=== PATIENT | female | born 1980 | race Caucasian/White ===

== ENCOUNTER 2020-02-17 10:57 | Outpatient (CLI) | payer MEDICAID ==
[2020-02-17 15:57] LABS: BASOPHILS # (AUTO) 0.1 10^3/uL (0.0-0.1); BASOPHILS % (AUTO) 0.8 %; EOSINOPHILS # (AUTO) 0.1 10^3/uL (0.0-0.7); EOSINOPHILS % (AUTO) 1.5 %; HGB - HEMOGLOBIN 11.5 g/dL (12.0-16.0); LYMPHOCYTES % (AUTO) 23.3 %; MEAN CORPUSCULAR HEMOGLOBIN 24.9 pg (27.0-31.0); MEAN CORPUSCULAR HGB CONC 30.2 g/dL (32.0-36.0); MEAN CORPUSCULAR VOLUME 82.6 fL (81.0-99.0); MEAN PLATELET VOLUME 11.4 fL (7.9-10.8); MONOCYTES # (AUTO) 0.5 10^3/uL (0.0-1.0); NEUTROPHILS # (AUTO) 5.7 10^3/uL (1.5-6.6); NEUTROPHILS % (AUTO) 68.2 %; PLT - PLATELET COUNT 403 10^3/uL (130-450); RED BLOOD COUNT 4.61 10^6/uL (4.20-5.40); RED CELL DISTRIBUTION WIDTH 16.4 % (12.0-15.0); WHITE BLOOD COUNT 8.4 x10^3/uL (4.8-10.8)
[2020-02-17 16:18] LABS: ALBUMIN 4.1 g/dL (3.2-5.5); ALBUMIN/GLOBULIN RATIO 1.1 (1.0-2.2); ALKALINE PHOSPHATASE 72 IU/L (42-121); ALT ALANINE AMINOTRANSFERASE 48 IU/L (10-60); AST ASPARTATE AMINOTRANSFERASE 34 IU/L (10-42); BILIRUBIN,TOTAL 0.5 mg/dL (0.2-1.0); BUN - BLOOD UREA NITROGEN 13 mg/dL (6-20); CALCIUM 9.3 mg/dL (8.5-10.3); CARBON DIOXIDE - CO2 24 mmol/L (21-32); CHLORIDE 101 mmol/L (101-111); CHOL/HDL RATIO 3.3 (<4.4); CHOLESTEROL 159 mg/dL; CREATININE 0.5 mg/dL (0.4-1.0); GLUCOSE 98 mg/dL (70-100); HDL CHOLESTEROL 48 mg/dL; LDL CHOLESTEROL,CALCULATED 94 mg/dL; SODIUM 135 mmol/L (135-145); TOTAL PROTEIN 7.9 g/dL (6.7-8.2); VLDL CHOLESTEROL 17 mg/dL
== END 2020-02-17 10:58 | disposition home or self-care (01) ==
LOC: LAB.S 10:57
PROVIDERS: ATTEND Registered Nurse
DX: E03.9 Hypothyroidism, unspecified (principal); E04.1 Nontoxic single thyroid nodule; I10 Essential (primary) hypertension; F41.8 Other specified anxiety disorders; M79.10 Myalgia, unspecified site
CPT/HCPCS: 36415; 80050; 80061; 83721

== ENCOUNTER 2020-07-05 18:34 | Outpatient (CLI) | payer MEDICAID | END 2020-07-05 18:35 | disposition home or self-care (01) | LOC: COV 18:34 | PROVIDERS: ATTEND Family Medicine | DX: R05 Cough (principal); R06.02 Shortness of breath; M79.10 Myalgia, unspecified site; R11.0 Nausea; Z20.822 Contact with and (suspected) exposure to COVID-19 ==

== ENCOUNTER 2020-08-07 17:06 | Outpatient (CLI) | payer MEDICAID | END 2020-08-07 17:07 | disposition home or self-care (01) | LOC: COV 17:06 | PROVIDERS: ATTEND Family Medicine | DX: Z20.822 Contact with and (suspected) exposure to COVID-19 (principal) ==

== ENCOUNTER 2021-02-26 21:06 | Outpatient (CLI) | payer MEDICAID | END 2021-02-26 21:07 | disposition EMS.NT | LOC: EMS 21:06 | DX: S99.912A Unspecified injury of left ankle, initial encounter (principal); X50.1XXA Overexertion from prolonged static or awkward postures, initial encounter; Y93.01 Activity, walking, marching and hiking; Y92.007 Garden or yard of unspecified non-institutional (private) residence as the place of occurrence of the external cause ==

== ENCOUNTER 2021-02-27 11:54 | Emergency (ER) | payer MEDICAID ==
[2021-02-27 12:07] VITALS: BP 153/101
--- NOTE | 2021-02-27 12:34 | XRAY Report ---
PROCEDURE: Ankle 3 View LT INDICATIONS: trauma TECHNIQUE: 3 views of the ankle were acquired. COMPARISON: None FINDINGS: Bones: No fractures or dislocations. Ankle mortise is normally aligned. No suspicious bony lesions . Well-defined plantar and dorsal calcaneal enthesophytes are seen. Soft tissues: Ankle soft tissue swelling is seen particularly over lateral malleolus. No tibiotalar j oint effusion. Achilles tendon appears normal. IMPRESSION: No definite acute ankle fracture or dislocation. Ankle mortise is congruent. Ankle soft tissue swelling as above. Reviewed by: Tremaine Chávez MD on 02/27/2021 12:33 PM PDT Approved by: Tremaine Chávez MD on 02/27/2021 12:33 PM PDT Station ID: [id number]
--- NOTE | 2021-02-27 14:11 | ED Physician Documentation ---
PD HPI LOWER EXT INJURY - Stated complaint Stated Complaint: L FOOT PX - Chief complaint Chief Complaint: Trauma Ext - History obtained from History obtained from: Patient - History of Present Illness PD HPI LOW EXT INJURY LOCATION: Left, Ankle Type of injury: Twist Where injury occurred: Home Timing - onset: Yesterday Timing - details: Abrupt onset, Still present Improved by: Immobilization Worsened by: Moving, Palpating, Other (weight bearing very painful.) Associated symptoms: Swelling. No: Weakness, Numbness Similar symptoms before: Has not had sx before Review of Systems Skin: denies: Abrasion (s), Laceration (s) Musculoskeletal: denies: Neck pain, Back pain Neurologic: denies: Focal weakness, Numbness, Head injury PD PAST MEDICAL HISTORY - Past Medical History Cardiovascular: None Respiratory: None - Present Medications Home Medications: Ambulatory Orders Medication Instructions Recorded Confirmed Ibuprofen [Motrin] 1 tablet PO Q8H PRN #30 tablet 02/27/21 - Allergies Allergies/Adverse Reactions: Allergies Allergy/AdvReac Type Severity Reaction Status Date / Time epinephrine AdvReac Anxiety Verified 02/27/21 12:07 PD ED PE NORMAL - Vitals Vital signs reviewed: Yes - General General: Alert and oriented X 3, No acute distress, Well developed/nourished - Derm Derm: Normal color, Warm and dry - Extremities Extremities: Other (left ankle with diffuse swelling and effusion. Achilles intact. too piainful for good stress testing of ligaments. no gross instability. normal color and cap refill.) - Neuro Neuro: No motor deficit, No sensory deficit Results - Vitals Vitals: Vital Signs - 24 hr 02/27/21 12:05 Temperature 36.0 C L Heart Rate 84 Respiratory 16 Rate Blood Pressure 153/101 H O2 Saturation 97 Oxygen O2 Source Room air - Rads (name of study) left ankle Radiology: Prelim report reviewed (no fractures. mortis is congruent.), EMP read contemporaneously, See rad report Departure - Departure Disposition: 01 Home, Self Care Clinical Impression: Ankle sprain Qualifiers: Encounter type: initial encounter Involved ligament of ankle: unspecified ligament Laterality: left Qualified Code(s): S93.402A - Sprain of unspecified ligament of left ankle, initial encounter Condition: Stable Record reviewed to determine appropriate education?: Yes Instructions: ED Sprain Ankle W X Ray Follow-Up: Patricia Pagan ARNP [Primary Care Provider] - Demetrius Hummel MD [Provider Admit Priv/Credential] - Prescriptions: Ibuprofen [Motrin] 1 tablet PO Q8H PRN #30 tablet PRN Reason: PAIN &/OR FEVER Comments: No fracture seen on your x-ray. However your ankle pain and swelling are suggestive of some ligament injuries. We can presume some partial tears. Use the walking boot when up and around for the next 2 to 3 weeks until feeling fully healed and supported. Use the crutches initially for not nonweightbearing to partial weightbearing as needed for comfort and progress weightbearing as tolerated. Ice elevate and rest your ankle often the next few days to reduce swelling. Ibuprofen 3 times a day with food. To that add Tylenol if needed. Recheck if not improving well over the next week or so to the point of fairly comfortable weightbearing. Continue with the ankle brace however to ensure support while fully healing. Discharge Date/Time: 02/27/21 15:55
[2021-02-27] MEDS ORDERED: IBUPROFEN 800 MG TABLET PO STA (15:22)
[2021-02-27] MEDS ORDERED: ACETAMINOPHEN 325 MG TABLET PO STA (15:22)
== END 2021-02-27 15:55 | disposition home or self-care (01) ==
LOC: ED 11:54
DX: S93.402A Sprain of unspecified ligament of left ankle, initial encounter (principal); X50.1XXA Overexertion from prolonged static or awkward postures, initial encounter; W01.0XXA Fall on same level from slipping, tripping and stumbling without subsequent striking against object, initial encounter; Y92.007 Garden or yard of unspecified non-institutional (private) residence as the place of occurrence of the external cause
CPT/HCPCS: 73610; 99282; 99283; A9270

== ENCOUNTER 2021-07-08 09:31 | Outpatient (CLI) | payer MEDICAID ==
[2021-07-08 15:11] LABS: BASOPHILS # (AUTO) 0.1 10^3/uL (0.0-0.1); BASOPHILS % (AUTO) 1.4 %; EOSINOPHILS # (AUTO) 0.3 10^3/uL (0.0-0.7); EOSINOPHILS % (AUTO) 3.7 %; HCT - HEMATOCRIT 34.8 % (37.0-47.0); HGB - HEMOGLOBIN 10.3 g/dL (12.0-16.0); LYMPHOCYTES # (AUTO) 1.8 10^3/uL (1.5-3.5); LYMPHOCYTES % (AUTO) 25.7 %; MEAN CORPUSCULAR HEMOGLOBIN 23.1 pg (27.0-31.0); MEAN CORPUSCULAR HGB CONC 29.6 g/dL (32.0-36.0); MEAN PLATELET VOLUME 11.1 fL (7.9-10.8); MONOCYTES # (AUTO) 0.6 10^3/uL (0.0-1.0); MONOCYTES % (AUTO) 8.3 %; NEUTROPHILS # (AUTO) 4.3 10^3/uL (1.5-6.6); NEUTROPHILS % (AUTO) 60.6 %; PLT - PLATELET COUNT 394 10^3/uL (130-450); RED BLOOD COUNT 4.46 10^6/uL (4.20-5.40); RED CELL DISTRIBUTION WIDTH 16.6 % (12.0-15.0); WHITE BLOOD COUNT 7.1 x10^3/uL (4.8-10.8)
[2021-07-08 15:49] LABS: ALBUMIN 3.7 g/dL (3.2-5.5); ALKALINE PHOSPHATASE 63 IU/L (42-121); ALT ALANINE AMINOTRANSFERASE 24 IU/L (10-60); AST ASPARTATE AMINOTRANSFERASE 19 IU/L (10-42); BILIRUBIN,TOTAL 0.4 mg/dL (0.2-1.0); BUN - BLOOD UREA NITROGEN 17 mg/dL (6-20); CALCIUM 8.7 mg/dL (8.5-10.3); CARBON DIOXIDE - CO2 26 mmol/L (21-32); CHLORIDE 104 mmol/L (101-111); CHOL/HDL RATIO 2.8 (<4.4); CHOLESTEROL 159 mg/dL; CREATININE 0.6 mg/dL (0.4-1.0); GFR - MDRD 110 (>89); GLUCOSE 102 mg/dL (70-100); HDL CHOLESTEROL 56 mg/dL; LDL CHOLESTEROL,CALCULATED 84 mg/dL; LDL/HDL RATIO 1.5 (<4.4); POTASSIUM 3.9 mmol/L (3.5-5.0); SODIUM 135 mmol/L (135-145); TOTAL PROTEIN 7.3 g/dL (6.7-8.2); TRIGLYCERIDES 97 mg/dL; VLDL CHOLESTEROL 19 mg/dL
[2021-07-08 16:20] LABS: THYROID STIMULATING HORMONE 9.05 uIU/mL (0.34-5.60)
[2021-07-08 17:01] LABS: FREE T4 (FREE THYROXINE) 0.83 ng/dL (0.58-1.64)
== END 2021-07-08 09:32 | disposition home or self-care (01) ==
LOC: LAB.S 09:31
PROVIDERS: ATTEND Registered Nurse
DX: D64.9 Anemia, unspecified (principal); E03.9 Hypothyroidism, unspecified; I10 Essential (primary) hypertension; F41.8 Other specified anxiety disorders; F41.9 Anxiety disorder, unspecified; F32.A Depression, unspecified
CPT/HCPCS: 36415; 80050; 80061; 83721; 84439

== ENCOUNTER 2021-07-09 08:00 | Outpatient (CLI) | payer MEDICAID ==
[2021-07-09 22:44] LABS: BACTERIAL VAGINOSIS DNA NEGATIVE (NEGATIVE); CANDIDA GLABRATA DNA NEGATIVE (NEGATIVE); CANDIDA GROUP DNA POSITIVE (NEGATIVE); CANDIDA KRUSEI DNA NEGATIVE (NEGATIVE); TRICHOMONAS VAGINALIS DNA NEGATIVE (NEGATIVE)
[2021-07-09 23:24] LABS: CHLAMYDIA TRACHOMATIS DNA NEGATIVE (NEGATIVE); NEISSERIA GONORRHOEAE DNA NEGATIVE (NEGATIVE); TRICHOMONAS VAGINALIS DNA NEGATIVE (NEGATIVE)
== END 2021-07-09 23:59 | disposition home or self-care (01) ==
LOC: LAB.S 08:00
PROVIDERS: ATTEND Physician Assistant
DX: N76.0 Acute vaginitis (principal)
CPT/HCPCS: 87491; 87591; 87661; 87801

== ENCOUNTER 2021-07-24 08:59 | Outpatient (CLI) | payer MEDICAID ==
[2021-07-24 16:14] LABS: % IRON SATURATION 6 % (20-50); IRON 27 ug/dL (28-170); TOTAL IRON BINDING CAPACITY 456 ug/dL (250-450); TRANSFERRIN 326 mg/dL (192-382)
[2021-07-24 16:17] LABS: ABSOLUTE RETICS # AUTO 0.056 10^6/uL (0.020-0.110); BASOPHILS # (AUTO) 0.1 10^3/uL (0.0-0.1); BASOPHILS % (AUTO) 1.3 %; EOSINOPHILS # (AUTO) 0.2 10^3/uL (0.0-0.7); EOSINOPHILS % (AUTO) 2.8 %; HCT - HEMATOCRIT 34.5 % (37.0-47.0); HGB - HEMOGLOBIN 10.1 g/dL (12.0-16.0); LYMPHOCYTES # (AUTO) 1.4 10^3/uL (1.5-3.5); LYMPHOCYTES % (AUTO) 20.7 %; MEAN CORPUSCULAR HEMOGLOBIN 23.2 pg (27.0-31.0); MEAN CORPUSCULAR HGB CONC 29.3 g/dL (32.0-36.0); MEAN CORPUSCULAR VOLUME 79.3 fL (81.0-99.0); MEAN PLATELET VOLUME 10.5 fL (7.9-10.8); MONOCYTES # (AUTO) 0.5 10^3/uL (0.0-1.0); MONOCYTES % (AUTO) 7.3 %; NEUTROPHILS # (AUTO) 4.5 10^3/uL (1.5-6.6); NEUTROPHILS % (AUTO) 67.6 %; PLT - PLATELET COUNT 409 10^3/uL (130-450); RED BLOOD COUNT 4.35 10^6/uL (4.20-5.40); RED CELL DISTRIBUTION WIDTH 16.5 % (12.0-15.0); RETICULOCYTE COUNT % (AUTO) 1.28 % (0.5-2.3); WHITE BLOOD COUNT 6.7 x10^3/uL (4.8-10.8)
[2021-07-24 16:32] LABS: FERRITIN 4.1 ng/mL (11.0-306.8)
[2021-07-24 16:36] LABS: FOLATE 11.5 ng/mL (5.90 - >24.8)
== END 2021-07-24 09:00 | disposition home or self-care (01) ==
LOC: LAB.S 08:59
PROVIDERS: ATTEND Registered Nurse
DX: D64.9 Anemia, unspecified (principal)
CPT/HCPCS: 36415; 81599; 82607; 82728; 82746; 83020; 83540; 84466; 85014; 85018; 85025; 85041; 85045

== ENCOUNTER 2021-10-02 22:05 | Outpatient (CLI) | payer MEDICAID ==
--- NOTE | 2021-10-03 08:37 | Ultrasound Report ---
PROCEDURE: Head or Neck Soft Tissue INDICATIONS: THYROID NODULE TECHNIQUE: Real-time scanning was performed of the thyroid gland, with image documentation. COMPARISON: 11/08/2018 FINDINGS: Right: Thyroid lobe measures 5.8 x 1.8 x 1.9 cm, and is heterogeneous in echotexture. Left: Thyroid lobe measures 5.9 x 1.8 x 2.1 cm, and is heterogeneous in echotexture. Isthmus: 7 mm thick. Nodule number: One Location: Upper to midpole right thyroid lobe Size: 1.4 x 1 x 0.9 cm, previously measures 1.3 x 0.9 x 0.8 cm. Composition: Solid Echogenicity: Hypoechoic Shape: wider than tall. Margins: Irregular Echogenic foci: None Total points: 6 ACR TI-RADS category: Moderately suspicious. Nodule number: Two Location: Mental of left thyroid lobe Size: 0.6 x 0.5 x 0.2 cm, previously measured 0.4 x 0.3 x 0.3 cm. Composition: Solid Echogenicity: Hyperechoic Shape: wider than tall. Margins: Smooth Echogenic foci: None Total points: 3 ACR TI-RADS category: Mildly suspicious. IMPRESSION: 1. Heterogeneous thyroid parenchymal echotexture. Bilateral thyroid nodules as described above, not s ignificantly changed in size and appearance from 2019 study. Consider continued sonographic follow-up . Following recommendations. ACR TI-RADS definitions and recommendations: TI-RADS 1 (benign): 0 points. FNA not needed. TI-RADS 2 (not suspicious): 2 points. FNA not needed. TI-RADS 3 (mildly suspicious): 3 points. "FNA if 2.5 cm or larger, follow up if 1.5 cm or larger (at 1, 3, and 5 years). TI-RADS 4 (moderately suspicious): 4-6 points. "FNA if 1.5 cm or larger, follow up if 1 cm or larger (at 1, 2, 3, and 5 years). TI-RADS 5 (highly suspicious): 7 points or more. "FNA if 1 cm or larger, follow up if 0.5 cm or larger (every year for 5 years). Reviewed by: Tremaine Chávez MD on 10/03/2021 8:36 AM PDT Approved by: Tremaine Chávez MD on 10/03/2021 8:36 AM PDT Station ID: [id number]
== END 2021-10-02 22:06 | disposition home or self-care (01) ==
LOC: DI 22:05
PROVIDERS: ATTEND Registered Nurse
DX: E04.2 Nontoxic multinodular goiter (principal)

== ENCOUNTER 2022-04-17 13:57 | Outpatient (CLI) | payer MEDICAID ==
[2022-04-17 20:50] LABS: T4 (THYROXINE) 10.27 ug/dL (6.09-12.23)
[2022-04-17 20:54] LABS: THYROID STIMULATING HORMONE 2.99 uIU/mL (0.34-5.60)
== END 2022-04-17 13:58 | disposition home or self-care (01) ==
LOC: LAB.S 13:57
PROVIDERS: ATTEND Registered Nurse
DX: E03.9 Hypothyroidism, unspecified (principal)
CPT/HCPCS: 36415; 84436; 84443; 84480

== ENCOUNTER 2022-06-10 16:23 | Outpatient (CLI) | payer MEDICAID ==
--- NOTE | 2022-06-10 20:19 | Ultrasound Report ---
PROCEDURE: Ext Limited Non Vascular INDICATIONS: BENIGN NEOPLASM LATERAL RIGHT THIGH TECHNIQUE: Real-time scanning was performed of the anterior thigh., with image documentation. COMPARISON: None. FINDINGS: Sonographic images demonstrate no focal mass or fluid collection. Minimal appearance of in creased vascularity is noted. Concern. IMPRESSION: Nonspecific slight increased vascularity at the area of concern without defined mass. Ov erall appearance is nonspecific and if concern persists, MRI is recommended. Reviewed by: Karen Harden MD on 06/10/2022 8:18 PM PST Approved by: Karen Harden MD on 06/10/2022 8:18 PM PST Station ID: [id number]
== END 2022-06-10 16:24 | disposition home or self-care (01) ==
LOC: DI 16:23
PROVIDERS: ATTEND Registered Nurse
DX: D36.7 Benign neoplasm of other specified sites (principal)

== ENCOUNTER 2022-06-24 08:00 | Outpatient (CLI) | payer MEDICAID, OTHER ==
[2022-06-24 12:40] LABS: BASOPHILS # (AUTO) 0.1 10^3/uL (0.0-0.1); BASOPHILS % (AUTO) 1.2 %; EOSINOPHILS # (AUTO) 0.2 10^3/uL (0.0-0.7); EOSINOPHILS % (AUTO) 2.3 %; HCT - HEMATOCRIT 35.4 % (37.0-47.0); HGB - HEMOGLOBIN 10.4 g/dL (12.0-16.0); LYMPHOCYTES # (AUTO) 1.5 10^3/uL (1.5-3.5); LYMPHOCYTES % (AUTO) 20.4 %; MEAN CORPUSCULAR HEMOGLOBIN 23.4 pg (27.0-31.0); MEAN CORPUSCULAR HGB CONC 29.4 g/dL (32.0-36.0); MEAN CORPUSCULAR VOLUME 79.6 fL (81.0-99.0); MEAN PLATELET VOLUME 11.5 fL (7.9-10.8); MONOCYTES # (AUTO) 0.6 10^3/uL (0.0-1.0); MONOCYTES % (AUTO) 7.3 %; NEUTROPHILS # (AUTO) 5.2 10^3/uL (1.5-6.6); NEUTROPHILS % (AUTO) 68.4 %; PLT - PLATELET COUNT 344 10^3/uL (130-450); RED BLOOD COUNT 4.45 10^6/uL (4.20-5.40); RED CELL DISTRIBUTION WIDTH 17.1 % (12.0-15.0); WHITE BLOOD COUNT 7.5 x10^3/uL (4.8-10.8)
[2022-06-24 12:58] LABS: ALBUMIN 3.7 g/dL (3.2-5.5); ALKALINE PHOSPHATASE 62 IU/L (42-121); ALT ALANINE AMINOTRANSFERASE 15 IU/L (10-60); AST ASPARTATE AMINOTRANSFERASE 15 IU/L (10-42); BILIRUBIN,TOTAL 0.5 mg/dL (0.2-1.0); BUN - BLOOD UREA NITROGEN 20 mg/dL (6-20); CALCIUM 9.1 mg/dL (8.5-10.3); CARBON DIOXIDE - CO2 27 mmol/L (21-32); CHLORIDE 104 mmol/L (101-111); CREATININE 0.5 mg/dL (0.4-1.0); GFR - MDRD 135 (>89); GLUCOSE 94 mg/dL (70-100); POTASSIUM 4.2 mmol/L (3.5-5.0); SODIUM 139 mmol/L (135-145); TOTAL PROTEIN 7.4 g/dL (6.7-8.2)
[2022-06-24 13:00] LABS: CRP - C-REACTIVE PROTEIN < 1.0 mg/dL (0-1.0)
== END 2022-06-24 23:59 | disposition home or self-care (01) ==
LOC: LAB.N 08:00
PROVIDERS: ATTEND Nurse Practitioner
DX: D17.9 Benign lipomatous neoplasm, unspecified (principal)
CPT/HCPCS: 36415; 80053; 85025; 85379; 86140

== ENCOUNTER 2022-07-07 09:22 | Emergency (ER) | payer OTHER, MEDICAID ==
[2022-07-07 09:59] LABS: BASOPHILS # (AUTO) 0.1 10^3/uL (0.0-0.1); BASOPHILS % (AUTO) 1.1 %; EOSINOPHILS # (AUTO) 0.1 10^3/uL (0.0-0.7); EOSINOPHILS % (AUTO) 1.5 %; HGB - HEMOGLOBIN 10.3 g/dL (12.0-16.0); LYMPHOCYTES # (AUTO) 1.9 10^3/uL (1.5-3.5); LYMPHOCYTES % (AUTO) 25.5 %; MEAN CORPUSCULAR HEMOGLOBIN 23.3 pg (27.0-31.0); MEAN CORPUSCULAR HGB CONC 29.4 g/dL (32.0-36.0); MEAN PLATELET VOLUME 10.5 fL (7.9-10.8); MONOCYTES # (AUTO) 0.5 10^3/uL (0.0-1.0); MONOCYTES % (AUTO) 6.7 %; NEUTROPHILS # (AUTO) 4.7 10^3/uL (1.5-6.6); NEUTROPHILS % (AUTO) 64.8 %; PLT - PLATELET COUNT 444 10^3/uL (130-450); RED BLOOD COUNT 4.43 10^6/uL (4.20-5.40); RED CELL DISTRIBUTION WIDTH 16.5 % (12.0-15.0); WHITE BLOOD COUNT 7.3 x10^3/uL (4.8-10.8)
--- OUTSIDE RECORDS SUMMARY | 2022-07-07 10:06 | EXTERNAL MEDICAL SUMMARY RPT | Continuity of Care Document ---
:1980 Author Organization [facility] Address [address] [place] [address] Phone Care Team Providers Name Role Phone Patricia Pagan Unavailable Unavailable Allergies No information. Encounters No information. Functional Status No information. Immunizations No information. Medications No information. Problems date description facility 2022-05-27 00:00 [facility] 2022-06-24 00:00 Patient left before evaluation by [facility] Procedures No information. Results/Labs test date author facility value unit interpret ation Result panel 1 (unknown) (no date) (unknown) (unknown) (no value) (units (un known) unknown) (unknown) (no date) (unknown) (unknown) 11:02 (units (unkn own) unknown) (unknown) (no date) (unknown) (unknown) 05/27/22 (units (unkn own) unknown) (unknown) (no date) (unknown) (unknown) [id number] (units (unkn own) unknown) (unknown) (no date) (unknown) (unknown) Age/Sex: 41 / (units (unknown) F unknown) (unknown) (no date) (unknown) (unknown) Blood Pressure (units (unknown) 152/82 H unknown) 05/27/22 11:02 (unknown) (no date) (unknown) (unknown) Blood Pressure (units (unknown) 152/82 H unknown) (unknown) (no date) (unknown) (unknown) Chief (units (unkn own) complaint: unknown) Extremity Problem,Nontrau matic (unknown) (no date) (unknown) (unknown) Course (units (unkn own) unknown) (unknown) (no date) (unknown) (unknown) : (units (unkn own) 1980 unknown) Acct:[id number] (unknown) (no date) (unknown) (unknown) Date of (units (unkn own) Service: unknown) 05/27/22 (unknown) (no date) (unknown) (unknown) Departure (units (unk nown) unknown) (unknown) (no date) (unknown) (unknown) Discharge Plan (units (unknown) unknown) (unknown) (no date) (unknown) (unknown) ER Physician: (units (unknown) Liz Alamo unknown) D.O. (unknown) (no date) (unknown) (unknown) Emergency (units (unk nown) Report unknown) (unknown) (no date) (unknown) (unknown) Exam (units (unkn own) unknown) (unknown) (no date) (unknown) (unknown) General (units (unkn own) unknown) (unknown) (no date) (unknown) (unknown) HPI - (units (unkn own) Extremity unknown) Problem (unknown) (no date) (unknown) (unknown) Initial Vital (units (unknown) Signs unknown) (unknown) (no date) (unknown) (unknown) Initial Vital (units (unknown) Signs: unknown) (unknown) (no date) (unknown) (unknown) [place] (units (unkn own) [place] [id number] unknown) [address] [place] [id number] (unknown) (no date) (unknown) (unknown) Patricia Pagan, (units (unknown) SOFTWARE PERFORMANCE ENGINEER-C [Primary unknown) Care Provider] (unknown) (no date) (unknown) (unknown) Mode of (units (unkn own) arrival: unknown) Ambulatory (unknown) (no date) (unknown) (unknown) Oxygen (units (unkn own) Delivery Method unknown) 05/27/22 11:02 (unknown) (no date) (unknown) (unknown) Oxygen (units (unkn own) Delivery Method unknown) Room Air (unknown) (no date) (unknown) (unknown) Patient (units (unkn own) History unknown) (unknown) (no date) (unknown) (unknown) Patient: (units (unkn own) Linsey Verduzco unknown) MR#: [id number] (unknown) (no date) (unknown) (unknown) Pulse Oximetry (units (unknown) 99 05/27/22 unknown) 11:02 (unknown) (no date) (unknown) (unknown) Pulse Oximetry (units (unknown) 99 unknown) (unknown) (no date) (unknown) (unknown) Pulse Rate 80 (units (unknown) 05/27/22 11:02 unknown) (unknown) (no date) (unknown) (unknown) Pulse Rate 80 (units (unknown) unknown) (unknown) (no date) (unknown) (unknown) Referrals: (units (un known) unknown) (unknown) (no date) (unknown) (unknown) Respiratory (units (u nknown) Rate 18 unknown) 05/27/22 11:02 (unknown) (no date) (unknown) (unknown) Respiratory (units (u nknown) Rate 18 unknown) (unknown) (no date) (unknown) (unknown) Signed By: (units (un known) unknown) (unknown) (no date) (unknown) (unknown) Smoking (units (unkn own) Status: Current unknown) every day smoker (unknown) (no date) (unknown) (unknown) Social History (units (unknown) unknown) (unknown) (no date) (unknown) (unknown) Source: (units (unkn own) patient unknown) (unknown) (no date) (unknown) (unknown) Stated (units (unkn own) complaint: mass unknown) on RT thigh t-14 (unknown) (no date) (unknown) (unknown) Substance Use (units (unknown) Type: does not unknown) use (unknown) (no date) (unknown) (unknown) Temperature (units (u nknown) 98.2 F 05/27/22 unknown) 11:02 (unknown) (no date) (unknown) (unknown) Temperature (units (u nknown) 98.2 F unknown) (unknown) (no date) (unknown) (unknown) Time Seen by (units ( unknown) Provider: unknown) 05/27/22 10:54 (unknown) (no date) (unknown) (unknown) Vital Signs - (units (unknown) 8 hr unknown) (unknown) (no date) (unknown) (unknown) Vital Signs (units (u nknown) unknown) (unknown) (no date) (unknown) (unknown) Vital signs: (units ( unknown) unknown) (unknown) (no date) (unknown) (unknown) alcohol intake (units (unknown) frequency: 0-2 unknown) drinks per day (unknown) (no date) (unknown) (unknown) tobacco type: (units (unknown) cigarettes unknown) Result panel 2 (unknown) (no (unknown) (unknown) (no value) (units (unk nown) date) unknown) (unknown) (no (unknown) (unknown) 11:02 (units (unkno wn) date) unknown) (unknown) (no (unknown) (unknown) 05/27/22 (units (unkno wn) date) unknown) (unknown) (no (unknown) (unknown) [id number] (units (unkno wn) date) unknown) (unknown) (no (unknown) (unknown) 8 point review of (units (unknown) date) systems is unknown) negative except for those stated above and HPI (unknown) (no (unknown) (unknown) Activity (units (unkno wn) date) Restrictions/Addit unknown) ional Instructions: (unknown) (no (unknown) (unknown) Age/Sex: 41 / F (units (unknown) date) unknown) (unknown) (no (unknown) (unknown) At this time that (units (unknown) date) you probably have unknown) a fatty mass. It is called a lipoma. This (unknown) (no (unknown) (unknown) Blood Pressure (units (unknown) date) 152/82 H 05/27/22 unknown) 11:02 (unknown) (no (unknown) (unknown) Blood Pressure (units (unknown) date) 152/82 H unknown) (unknown) (no (unknown) (unknown) CARDIOVASCULAR: (units (unknown) date) Denies chest pain, unknown) palpitations (unknown) (no (unknown) (unknown) CARDIOVASCULAR: (units (unknown) date) peripheral pulses unknown) in tact, cap refill <2 sec (unknown) (no (unknown) (unknown) Chief complaint: (units (unknown) date) Extremity unknown) Problem,Nontraumat ic (unknown) (no (unknown) (unknown) Clinical (units (unkno wn) date) Impression: unknown) (unknown) (no (unknown) (unknown) Continue all (units (u nknown) date) medications as unknown) previously prescribed (unknown) (no (unknown) (unknown) Course (units (unkno wn) date) unknown) (unknown) (no (unknown) (unknown) : 1980 (units (unknown) date) Acct:[id number] unknown) (unknown) (no (unknown) (unknown) Date of Service: (units (unknown) date) 05/27/22 unknown) (unknown) (no (unknown) (unknown) Departure (units (unkn own) date) unknown) (unknown) (no (unknown) (unknown) Discharge Plan (units (unknown) date) unknown) (unknown) (no (unknown) (unknown) ER Physician: (units ( unknown) date) Liz Alamo unknown) D.O. (unknown) (no (unknown) (unknown) EXTREMITIES: (units (u nknown) date) Normal range of unknown) motion, no clubbing or edema. Neurovascularly (unknown) (no (unknown) (unknown) Emergency Report (units (unknown) date) unknown) (unknown) (no (unknown) (unknown) Exam (units (unkno wn) date) unknown) (unknown) (no (unknown) (unknown) GASTROINTESTINAL: (units (unknown) date) Denies nausea, unknown) vomiting (unknown) (no (unknown) (unknown) GENERAL: Denies (units (unknown) date) chills,fever unknown) (unknown) (no (unknown) (unknown) GENERAL: (units (unkno wn) date) Well-appearing, unknown) well-nourished and in no acute distress. (unknown) (no (unknown) (unknown) General (units (unkno wn) date) unknown) (unknown) (no (unknown) (unknown) HEENT: Denies (units ( unknown) date) throat pain unknown) (unknown) (no (unknown) (unknown) HPI - Extremity (units (unknown) date) Problem unknown) (unknown) (no (unknown) (unknown) HPI Narrative: (units (unknown) date) unknown) (unknown) (no (unknown) (unknown) History of (units (unk nown) date) Present Illness unknown) (unknown) (no (unknown) (unknown) Initial Vital (units ( unknown) date) Signs unknown) (unknown) (no (unknown) (unknown) Initial Vital (units ( unknown) date) Signs: unknown) (unknown) (no (unknown) (unknown) Instructions: (units ( unknown) date) Lipoma, DI for unknown) Lipoma Removal (unknown) (no (unknown) (unknown) [facility] (units (unknown) date) [address] unknown) [place] [address] (unknown) (no (unknown) (unknown) Patricia Pagan, (units ( unknown) date) SOFTWARE PERFORMANCE ENGINEER-C [Primary unknown) Care Provider] (unknown) (no (unknown) (unknown) Lipoma (units (unkno wn) date) unknown) (unknown) (no (unknown) (unknown) MDM - Extremity (units (unknown) date) (Nontraumatic) unknown) (unknown) (no (unknown) (unknown) MDM Narrative (units ( unknown) date) unknown) (unknown) (no (unknown) (unknown) MUSCULOSKELETAL: (units (unknown) date) Denies extremity unknown) pain, injury (unknown) (no (unknown) (unknown) Medical decision (units (unknown) date) making narrative: unknown) (unknown) (no (unknown) (unknown) Mode of arrival: (units (unknown) date) Ambulatory unknown) (unknown) (no (unknown) (unknown) NEUROLOGIC: (units (un known) date) Denies weakness, unknown) dizziness, headache, numbness (unknown) (no (unknown) (unknown) NEUROLOGICAL: (units ( unknown) date) Cranial nerves II unknown) through XII grossly intact. Normal gait and (unknown) (no (unknown) (unknown) Narrative: (units (unk nown) date) unknown) (unknown) (no (unknown) (unknown) Oxygen Delivery (units (unknown) date) Method 05/27/22 unknown) 11:02 (unknown) (no (unknown) (unknown) Oxygen Delivery (units (unknown) date) Method Room Air unknown) (unknown) (no (unknown) (unknown) Patient (units (unkno wn) date) Disposition: Home unknown) (unknown) (no (unknown) (unknown) Patient History (units (unknown) date) unknown) (unknown) (no (unknown) (unknown) Patient is a (units (u nknown) date) 41-year-old female unknown) history of hypothyroid hyper tension presenting (unknown) (no (unknown) (unknown) Patient presents (units (unknown) date) with ongoing unknown) swelling in her right lateral thigh. It is non (unknown) (no (unknown) (unknown) Patient: (units (unkno wn) date) Linsey Verduzco unknown) MR#: [id number] (unknown) (no (unknown) (unknown) Please monitor (units (unknown) date) for any worsening unknown) symptoms such as redness swelling pain fever, (unknown) (no (unknown) (unknown) Please see your (units (unknown) date) primary care unknown) provider in the next 2-3 days at least call for an (unknown) (no (unknown) (unknown) Probable lipoma. (units (unknown) date) She is ambulatory unknown) without any difficulty. There is no sign of (unknown) (no (unknown) (unknown) Pulse Oximetry 99 (units (unknown) date) 05/27/22 11:02 unknown) (unknown) (no (unknown) (unknown) Pulse Oximetry 99 (units (unknown) date) unknown) (unknown) (no (unknown) (unknown) Pulse Rate 80 (units ( unknown) date) 05/27/22 11:02 unknown) (unknown) (no (unknown) (unknown) Pulse Rate 80 (units ( unknown) date) unknown) (unknown) (no (unknown) (unknown) RESPIRATORY: (units (u nknown) date) Denies dyspnea, unknown) cough, wheezing (unknown) (no (unknown) (unknown) RESPIRATORY: No (units (unknown) date) respiratory unknown) distress, speaks in full sentences without (unknown) (no (unknown) (unknown) Referrals: (units (unk nown) date) unknown) (unknown) (no (unknown) (unknown) Respiratory Rate (units (unknown) date) 18 05/27/22 11:02 unknown) (unknown) (no (unknown) (unknown) Respiratory Rate (units (unknown) date) 18 unknown) (unknown) (no (unknown) (unknown) Review of Systems (units (unknown) date) unknown) (unknown) (no (unknown) (unknown) SKIN: No rash, no (units (unknown) date) laceration, no unknown) pruritus (unknown) (no (unknown) (unknown) SKIN: Right (units (un known) date) lateral thigh unknown) there is swelling probable lipoma it is not (unknown) (no (unknown) (unknown) Signed By: (units (unk nown) date) unknown) (unknown) (no (unknown) (unknown) Smoking Status: (units (unknown) date) Current every day unknown) smoker (unknown) (no (unknown) (unknown) Social History (units (unknown) date) unknown) (unknown) (no (unknown) (unknown) Source: patient (units (unknown) date) unknown) (unknown) (no (unknown) (unknown) Stated complaint: (units (unknown) date) mass on RT thigh unknown) t-14 (unknown) (no (unknown) (unknown) Substance Use (units ( unknown) date) Type: does not use unknown) (unknown) (no (unknown) (unknown) Temperature 98.2 (units (unknown) date) F 05/27/22 11:02 unknown) (unknown) (no (unknown) (unknown) Temperature 98.2 (units (unknown) date) F unknown) (unknown) (no (unknown) (unknown) Time Seen by (units (u nknown) date) Provider: 05/27/22 unknown) 10:54 (unknown) (no (unknown) (unknown) Vital Signs - 8 (units (unknown) date) hr unknown) (unknown) (no (unknown) (unknown) Vital Signs (units (un known) date) unknown) (unknown) (no (unknown) (unknown) Vital signs: (units (u nknown) date) unknown) (unknown) (no (unknown) (unknown) abscess or (units (unk nown) date) infection. At this unknown) time I recommend further outpatient workup. (unknown) (no (unknown) (unknown) alcohol intake (units (unknown) date) frequency: 0-2 unknown) drinks per day (unknown) (no (unknown) (unknown) and is worried (units (unknown) date) about what it is. unknown) She denies any chest pain cough shortness of (unknown) (no (unknown) (unknown) appointment (units (un known) date) unknown) (unknown) (no (unknown) (unknown) breath nausea (units ( unknown) date) vomiting or other unknown) (unknown) (no (unknown) (unknown) difficulty (units (unk nown) date) unknown) (unknown) (no (unknown) (unknown) erythematous it (units (unknown) date) is unknown how unknown) long it has been there. It is nonpainful. (unknown) (no (unknown) (unknown) erythematous no (units (unknown) date) fluctuation unknown) (unknown) (no (unknown) (unknown) if these present (units (unknown) date) please return to unknown) the ED for further evaluation (unknown) (no (unknown) (unknown) intact (units (unkno wn) date) unknown) (unknown) (no (unknown) (unknown) is benign and (units ( unknown) date) noncancerous. I unknown) still recommend that you see your primary care (unknown) (no (unknown) (unknown) not painful red (units (unknown) date) she denies any unknown) fever. She is feels like it is getting bigger (unknown) (no (unknown) (unknown) provider for (units (u nknown) date) further workup. unknown) However today it is not emergent. (unknown) (no (unknown) (unknown) speech. (units (unkno wn) date) unknown) (unknown) (no (unknown) (unknown) there she feels (units (unknown) date) like it is getting unknown) worse she noticed it with her pants. It is (unknown) (no (unknown) (unknown) tobacco type: (units ( unknown) date) cigarettes unknown) (unknown) (no (unknown) (unknown) today with (units (unk nown) date) swelling on her unknown) right thigh. She is not sure how long it has been Result panel 3 (unknown) (no (unknown) (unknown) (no value) (units (unk nown) date) unknown) (unknown) (no (unknown) (unknown) <Electronically (units (unknown) date) signed by Liz Alamo D.O.> (unknown) (no (unknown) (unknown) 11:02 (units (unkno wn) date) unknown) (unknown) (no (unknown) (unknown) 05/27/22 1851 (units ( unknown) date) unknown) (unknown) (no (unknown) (unknown) 05/27/22 (units (unkno wn) date) unknown) (unknown) (no (unknown) (unknown) [id number] (units (unkno wn) date) unknown) (unknown) (no (unknown) (unknown) 8 point review of (units (unknown) date) systems is unknown) negative except for those stated above and HPI (unknown) (no (unknown) (unknown) Activity (units (unkno wn) date) Restrictions/Addit unknown) ional Instructions: (unknown) (no (unknown) (unknown) Age/Sex: 41 / F (units (unknown) date) unknown) (unknown) (no (unknown) (unknown) At this time that (units (unknown) date) you probably have unknown) a fatty mass. It is called a lipoma. This (unknown) (no (unknown) (unknown) Blood Pressure (units (unknown) date) 152/82 H 05/27/22 unknown) 11:02 (unknown) (no (unknown) (unknown) Blood Pressure (units (unknown) date) 152/82 H unknown) (unknown) (no (unknown) (unknown) CARDIOVASCULAR: (units (unknown) date) Denies chest pain, unknown) palpitations (unknown) (no (unknown) (unknown) CARDIOVASCULAR: (units (unknown) date) peripheral pulses unknown) in tact, cap refill <2 sec (unknown) (no (unknown) (unknown) Chief complaint: (units (unknown) date) Extremity unknown) Problem,Nontraumat ic (unknown) (no (unknown) (unknown) Clinical (units (unkno wn) date) Impression: unknown) (unknown) (no (unknown) (unknown) Continue all (units (u nknown) date) medications as unknown) previously prescribed (unknown) (no (unknown) (unknown) Course (units (unkno wn) date) unknown) (unknown) (no (unknown) (unknown) : 1980 (units (unknown) date) Acct:[id number] unknown) (unknown) (no (unknown) (unknown) Date of Service: (units (unknown) date) 05/27/22 unknown) (unknown) (no (unknown) (unknown) Departure (units (unkn own) date) unknown) (unknown) (no (unknown) (unknown) Discharge Plan (units (unknown) date) unknown) (unknown) (no (unknown) (unknown) ER Physician: (units ( unknown) date) Liz Alamo unknown) D.O. (unknown) (no (unknown) (unknown) EXTREMITIES: (units (u nknown) date) Normal range of unknown) motion, no clubbing or edema. Neurovascularly (unknown) (no (unknown) (unknown) Emergency Report (units (unknown) date) unknown) (unknown) (no (unknown) (unknown) Exam (units (unkno wn) date) unknown) (unknown) (no (unknown) (unknown) GASTROINTESTINAL: (units (unknown) date) Denies nausea, unknown) vomiting (unknown) (no (unknown) (unknown) GENERAL: Denies (units (unknown) date) chills,fever unknown) (unknown) (no (unknown) (unknown) GENERAL: (units (unkno wn) date) Well-appearing, unknown) well-nourished and in no acute distress. (unknown) (no (unknown) (unknown) General (units (unkno wn) date) unknown) (unknown) (no (unknown) (unknown) HEENT: Denies (units ( unknown) date) throat pain unknown) (unknown) (no (unknown) (unknown) HPI - Extremity (units (unknown) date) Problem unknown) (unknown) (no (unknown) (unknown) HPI Narrative: (units (unknown) date) unknown) (unknown) (no (unknown) (unknown) History of (units (unk nown) date) Present Illness unknown) (unknown) (no (unknown) (unknown) Initial Vital (units ( unknown) date) Signs unknown) (unknown) (no (unknown) (unknown) Initial Vital (units ( unknown) date) Signs: unknown) (unknown) (no (unknown) (unknown) Instructions: (units ( unknown) date) Lipoma, DI for unknown) Lipoma Removal (unknown) (no (unknown) (unknown) [facility] (units (unknown) date) [address] unknown) [place] [address] (unknown) (no (unknown) (unknown) Patricia Pagan, (units ( unknown) date) SOFTWARE PERFORMANCE ENGINEER-C [Primary unknown) Care Provider] (unknown) (no (unknown) (unknown) Lipoma (units (unkno wn) date) unknown) (unknown) (no (unknown) (unknown) MDM - Extremity (units (unknown) date) (Nontraumatic) unknown) (unknown) (no (unknown) (unknown) MDM Narrative (units ( unknown) date) unknown) (unknown) (no (unknown) (unknown) MUSCULOSKELETAL: (units (unknown) date) Denies extremity unknown) pain, injury (unknown) (no (unknown) (unknown) Medical decision (units (unknown) date) making narrative: unknown) (unknown) (no (unknown) (unknown) Mode of arrival: (units (unknown) date) Ambulatory unknown) (unknown) (no (unknown) (unknown) NEUROLOGIC: (units (un known) date) Denies weakness, unknown) dizziness, headache, numbness (unknown) (no (unknown) (unknown) NEUROLOGICAL: (units ( unknown) date) Cranial nerves II unknown) through XII grossly intact. Normal gait and (unknown) (no (unknown) (unknown) Narrative: (units (unk nown) date) unknown) (unknown) (no (unknown) (unknown) Oxygen Delivery (units (unknown) date) Method 05/27/22 unknown) 11:02 (unknown) (no (unknown) (unknown) Oxygen Delivery (units (unknown) date) Method Room Air unknown) (unknown) (no (unknown) (unknown) Patient (units (unkno wn) date) Disposition: Home unknown) (unknown) (no (unknown) (unknown) Patient History (units (unknown) date) unknown) (unknown) (no (unknown) (unknown) Patient is a (units (u nknown) date) 41-year-old female unknown) history of hypothyroid hypertension presenting (unknown) (no (unknown) (unknown) Patient presents (units (unknown) date) with ongoing unknown) swelling in her right lateral thigh. It is non (unknown) (no (unknown) (unknown) Patient: (units (unkno wn) date) Linsey Verduzco M unknown) MR#: [id number] (unknown) (no (unknown) (unknown) Please monitor (units (unknown) date) for any worsening unknown) symptoms such as redness swelling pain fever, (unknown) (no (unknown) (unknown) Please see your (units (unknown) date) primary care unknown) provider in the next 2-3 days at least call for an (unknown) (no (unknown) (unknown) Probable lipoma. (units (unknown) date) She is ambulatory unknown) without any difficulty. There is no sign of (unknown) (no (unknown) (unknown) Pulse Oximetry 99 (units (unknown) date) 05/27/22 11:02 unknown) (unknown) (no (unknown) (unknown) Pulse Oximetry 99 (units (unknown) date) unknown) (unknown) (no (unknown) (unknown) Pulse Rate 80 (units ( unknown) date) 05/27/22 11:02 unknown) (unknown) (no (unknown) (unknown) Pulse Rate 80 (units ( unknown) date) unknown) (unknown) (no (unknown) (unknown) RESPIRATORY: (units (u nknown) date) Denies dyspnea, unknown) cough, wheezing (unknown) (no (unknown) (unknown) RESPIRATORY: No (units (unknown) date) respiratory unknown) distress, speaks in full sentences without (unknown) (no (unknown) (unknown) Referrals: (units (unk nown) date) unknown) (unknown) (no (unknown) (unknown) Respiratory Rate (units (unknown) date) 18 05/27/22 11:02 unknown) (unknown) (no (unknown) (unknown) Respiratory Rate (units (unknown) date) 18 unknown) (unknown) (no (unknown) (unknown) Review of Systems (units (unknown) date) unknown) (unknown) (no (unknown) (unknown) SKIN: No rash, no (units (unknown) date) laceration, no unknown) pruritus (unknown) (no (unknown) (unknown) SKIN: Right (units (un known) date) lateral thigh unknown) there is swelling probable lipoma it is not (unknown) (no (unknown) (unknown) Signed By: (units (unk nown) date) unknown) (unknown) (no (unknown) (unknown) Smoking Status: (units (unknown) date) Current every day unknown) smoker (unknown) (no (unknown) (unknown) Social History (units (unknown) date) unknown) (unknown) (no (unknown) (unknown) Source: patient (units (unknown) date) unknown) (unknown) (no (unknown) (unknown) Stated complaint: (units (unknown) date) mass on RT thigh unknown) t-14 (unknown) (no (unknown) (unknown) Substance Use (units ( unknown) date) Type: does not use unknown) (unknown) (no (unknown) (unknown) Temperature 98.2 (units (unknown) date) F 05/27/22 11:02 unknown) (unknown) (no (unknown) (unknown) Temperature 98.2 (units (unknown) date) F unknown) (unknown) (no (unknown) (unknown) Time Seen by (units (u nknown) date) Provider: 05/27/22 unknown) 10:54 (unknown) (no (unknown) (unknown) Visit Report (units (u nknown) date) Forms: Patient unknown) Portal/API (unknown) (no (unknown) (unknown) Vital Signs - 8 (units (unknown) date) hr unknown) (unknown) (no (unknown) (unknown) Vital Signs (units (un known) date) unknown) (unknown) (no (unknown) (unknown) Vital signs: (units (u nknown) date) unknown) (unknown) (no (unknown) (unknown) abscess or (units (unk nown) date) infection. At this unknown) time I recommend further outpatient workup. (unknown) (no (unknown) (unknown) alcohol intake (units (unknown) date) frequency: 0-2 unknown) drinks per day (unknown) (no (unknown) (unknown) and is worried (units (unknown) date) about what it is. unknown) She denies any chest pain cough shortness of (unknown) (no (unknown) (unknown) appointment (units (un known) date) unknown) (unknown) (no (unknown) (unknown) breath nausea (units ( unknown) date) vomiting or other unknown) (unknown) (no (unknown) (unknown) difficulty (units (unk nown) date) unknown) (unknown) (no (unknown) (unknown) erythematous it (units (unknown) date) is unknown how unknown) long it has been there. It is nonpainful. (unknown) (no (unknown) (unknown) erythematous no (units (unknown) date) fluctuation unknown) (unknown) (no (unknown) (unknown) if these present (units (unknown) date) please return to unknown) the ED for further evaluation (unknown) (no (unknown) (unknown) intact (units (unkno wn) date) unknown) (unknown) (no (unknown) (unknown) is benign and (units ( unknown) date) noncancerous. I unknown) still recommend that you see your primary care (unknown) (no (unknown) (unknown) not painful red (units (unknown) date) she denies any unknown) fever. She is feels like it is getting bigger (unknown) (no (unknown) (unknown) provider for (units (u nknown) date) further workup. unknown) However today it is not emergent. (unknown) (no (unknown) (unknown) speech. (units (unkno wn) date) unknown) (unknown) (no (unknown) (unknown) there she feels (units (unknown) date) like it is getting unknown) worse she noticed it with her pants. It is (unknown) (no (unknown) (unknown) tobacco type: (units ( unknown) date) cigarettes unknown) (unknown) (no (unknown) (unknown) today with (units (unk nown) date) swelling on her unknown) right thigh. She is not sure how long it has been Social History date description facility 2022-05-27 00:00 Smokes tobacco daily (finding) [facility] 2022-06-23 00:00 Smokes tobacco daily (finding) [facility] Vital Signs date measurement value units 2022-05-27 00:00 BMI 41.3 kg/m2 2022-05-27 00:00 BP_diastolic 82 mmHg 2022-05-27 00:00 BP_systolic 152 mmHg 2022-05-27 00:00 heart_rate 80 /min 2022-05-27 00:00 height_metric 177.8 cm 2022-05-27 00:00 height_standard 70 in 2022-05-27 00:00 o2_saturation 99 % 2022-05-27 00:00 respiration_rate 18 /min 2022-05-27 00:00 temperature_metric 36.78 C 2022-05-27 00:00 temperature_standard 98.2 F 2022-05-27 00:00 weight_metric 130.63 kg 2022-05-27 00:00 weight_standard 287.99 lb 2022-06-23 00:00 BMI 41.5 kg/m2 2022-06-23 00:00 BP_diastolic 86 mmHg 2022-06-23 00:00 BP_systolic 143 mmHg 2022-06-23 00:00 heart_rate 87 /min 2022-06-23 00:00 height_metric 177.8 cm 2022-06-23 00:00 height_standard 70 in 2022-06-23 00:00 o2_saturation 97 % 2022-06-23 00:00 respiration_rate 20 /min 2022-06-23 00:00 temperature_metric 36.39 C 2022-06-23 00:00 temperature_standard 97.5 F 2022-06-23 00:00 weight_metric 131.54 kg 2022-06-23 00:00 weight_standard 290 lb
[2022-07-07 10:13] LABS: ALBUMIN 3.8 g/dL (3.2-5.5); ALBUMIN/GLOBULIN RATIO 1.1 (1.0-2.2); BILIRUBIN,TOTAL 0.5 mg/dL (0.2-1.0); CALCIUM 9.2 mg/dL (8.5-10.3); CREATININE 0.6 mg/dL (0.4-1.0); POTASSIUM 4.2 mmol/L (3.5-5.0); TOTAL PROTEIN 7.4 g/dL (6.7-8.2)
--- NOTE | 2022-07-07 10:31 | XRAY Report ---
PROCEDURE: Chest 1 View X-Ray INDICATIONS: Chest pain TECHNIQUE: One view of the chest was acquired. COMPARISON: None. FINDINGS: Surgical changes and devices: None. Lungs and pleura: No pleural effusions or pneumothorax. Lungs are clear. Mediastinum: Mediastinal contours appear normal. Heart size is normal. Bones and chest wall: No suspicious bony lesions. Overlying soft tissues appear unremarkable. IMPRESSION: No acute cardiopulmonary findings. Reviewed by: Ailyn Hanna MD on 07/07/2022 10:30 AM [facility] Approved by: Ailyn Hanna MD on 07/07/2022 10:30 AM [facility] Station ID: [id number]
--- NOTE | 2022-07-07 14:28 | ED Physician Documentation ---
PD HPI CHEST PAIN - Stated complaint Stated Complaint: CHEST PX/ R LEG PX - Chief complaint Chief Complaint: Cardiac - History obtained from History obtained from: Patient - History of Present Illness Quality: Sharp Location: Substernal Radiation: Other (none) Improved by: Nothing Worsened by: Other (None, non exertional) Associated symptoms: No: Shortness of air, Diaphoresis, Nausea, Vomiting, Feeling faint / dizzy, General Weakness, Palpitations, Cough, Other - Additional information Additional information: 41-year-old female presents with multiple areas of swelling on the right lower leg. She has been evaluated in the past for this by her PCP or this month and ultrasound revealed nonspecific soft tissue swelling but no other acute findings. She states that at that time she only had the side's but now feels like 1 is developing around the knee as well as the right calf. She is concerned about these, worried about malignancy or other issues. They are sore and she cannot sleep at times due to them. She has not noted any erythema of the legs, no lower extremity edema. She has also had for a couple of days some intermittent sharp and brief substernal chest pain. Pain is nonexertional and comes spontaneously, lasts seconds and does not radiate. She cannot identify any alleviating or exacerbating factors. She is concerned however that it may be related to her Right leg swelling and would like evaluation. The patient has not yet followed up in the clinic where the ultrasound was done. Review of Systems Constitutional: reports: Reviewed and negative Cardiac: reports: Chest pain / pressure Respiratory: reports: Reviewed and negative GI: reports: Reviewed and negative : reports: Reviewed and negative Skin: reports: Other (Soft tissue swelling right leg) Musculoskeletal: reports: Extremity pain, Extremity swelling Neurologic: reports: Reviewed and negative Psychiatric: reports: Reviewed and negative Endocrine: reports: Reviewed and negative Immunocompromised: reports: Reviewed and negative PD PAST MEDICAL HISTORY - Past Medical History Past Medical History: Yes Cardiovascular: None Respiratory: None - Present Medications Home Medications: Ambulatory Orders Medication Instructions Recorded Confirmed Fluoxetine HCl [Prozac] 40 mg PO DAILY 07/07/22 07/07/22 Levothyroxine Sodium 150 mcg PO DAILY 07/07/22 07/07/22 [Levothyroxine] amLODIPine [Norvasc] 5 mg PO DAILY 07/07/22 07/07/22 lisinopriL [Lisinopril] 20 mg PO DAILY 07/07/22 07/07/22 - Allergies Allergies/Adverse Reactions: Allergies Allergy/AdvReac Type Severity Reaction Status Date / Time epinephrine AdvReac Anxiety Verified 07/07/22 09:37 - Social History Does the pt smoke?: No Smoking Status: Never smoker PD ED PE NORMAL - Vitals Vital signs reviewed: Yes - General General: Alert and oriented X 3, No acute distress, Well developed/nourished - HEENT HEENT: Atraumatic, Pharynx benign - Neck Neck: Supple, no meningeal sign, No JVD - Cardiac Cardiac: RRR, No murmur, No rub, Strong equal pulses - Respiratory Respiratory: No respiratory distress, Clear bilaterally - Abdomen Abdomen: Normal bowel sounds, Soft, Non tender, Non distended - Derm Derm: Normal color, Warm and dry, No rash, Other (There are several areas of soft Possible soft tissue masses in the right lateral thigh, right mid thigh and right calf. These are superficial, few similar to lipomas, no erythema, no focal areas of fluctuance or induration.No palpable cords, no lower extremity edema.) - Extremities Extremities: No deformity, Normal ROM s pain, No calf tenderness / cord - Neuro Neuro: Alert and oriented X 3 Eye Opening: Spontaneous Motor: Obeys Commands Verbal: Oriented GCS Score: 15 - Psych Psych: Normal mood, Normal affect Results - Vitals Vitals: Vital Signs - 24 hr 07/07/22 07/07/22 07/07/22 09:33 13:43 15:02 Temperature 36.7 C Heart Rate 79 82 87 Respiratory 16 20 15 Rate Blood Pressure 154/101 H 151/93 H 138/95 H O2 Saturation 99 100 99 Oxygen O2 Source Room air - Labs Labs: Laboratory Tests 07/07/22 07/07/22 07/07/22 09:55 09:55 09:55 WBC 7.3 RBC 4.43 Hgb 10.3 L Hct 35.0 L MCV 79.0 L MCH 23.3 L MCHC 29.4 L RDW 16.5 H Plt Count 444 MPV 10.5 Neut # (Auto) 4.7 Lymph # (Auto) 1.9 Ralls # (Auto) 0.5 Eos # (Auto) 0.1 Baso # (Auto) 0.1 Absolute Nucleated RBC 0.00 Nucleated RBC % 0.0 Sodium 138 Potassium 4.2 Chloride 103 Carbon Dioxide 26 Anion Gap 9.0 BUN 17 Creatinine 0.6 Estimated GFR (MDRD) 109 Glucose 99 Calcium 9.2 Total Bilirubin 0.5 AST 16 ALT 13 Alkaline Phosphatase 63 Troponin I High Sens 2.7 Total Protein 7.4 Albumin 3.8 Globulin 3.6 Albumin/Globulin Ratio 1.1 Lipase 34 PD Medical Decision Making - ED course Complexity details: reviewed results, re-evaluated patient, considered differential, d/w patient ED course: Patient presents with right leg soft tissue swelling as well as intermittent sharp chest pain. Right leg swelling has been present for weeks and she has had a prior evaluation that showed nonspecific soft tissue swelling, but no other acute findings. The patient was concerned about this especially as it hits spread to include 2 other sites In the right leg. The ultrasound that was done previously was reviewed and I encouraged the patient to follow-up with her primary doctor for this, they may consider an outpatient MRI If symptoms ongoing. We did obtain an ultrasound and preliminary this is negative for DVT. The patient had to leave before the final results were available. Her cardiac work-ups is reassuring, her chest pain is atypical, nonexertional, her troponin is negative, EKG shows no acute ischemic changes and chest x-ray is normal. Her PERC's rule is negative as the is soft tissue masses are Superficial and I have low suspicion for DVT or PE at this time. Patient was encouraged to follow-up with her PCP to further monitor the soft tissue masses and consider outpatient MRI. Patient counseled on supportive measures as well as return precautions if signs of infection, shortness of breath, increasing chest pain or other new concerns Departure - Departure Disposition: 01 Home, Self Care Clinical Impression: Atypical chest pain, Mass of soft tissue of right lower extremity Condition: Good Instructions: ED Chest Pain Atypical Unkn Cause Comments: You presented with chest pain as well as right lower leg pain and soft tissue masses. We obtained an US to rule out blood clot and the results of this are pending at the time you had to leave. Your heart workup is stable, your heart labs do not suggest a heart injury. Please follow-up in the clinic to further discuss your right leg soft tissue masses. They may consider ordering an MRI in the outpatient setting to further evaluate.
[2022-07-07 17:17] VITALS: BP 149/100
--- NOTE | 2022-07-07 17:36 | Ultrasound Report ---
PROCEDURE: Duplex Venous Limited INDICATIONS: right leg pain/swelling, r/o DVT TECHNIQUE: Real-time imaging, as well as color and pulse Doppler interrogation, were performed of the lower extr emity deep veins from the inguinal ligament to the popliteal fossa. COMPARISON: None. FINDINGS: The deep veins are normally compressible, and free of intraluminal thrombus. Color and pu lse Doppler demonstrate normal phasic intraluminal flow. There is normal augmentation response to di stal compression maneuver. IMPRESSION: No evidence of DVT in visualized right lower extremity veins. Reviewed by: Tremaine Chávez MD on 07/07/2022 5:35 PM PST Approved by: Tremaine Chávez MD on 07/07/2022 5:35 PM PST Station ID: [id number]
== END 2022-07-07 17:18 | disposition home or self-care (01) ==
LOC: ED 09:22
DX: R07.89 Other chest pain (principal); R22.42 Localized swelling, mass and lump, left lower limb
CPT/HCPCS: 36415; 80053; 83690; 84484; 85025; 93005; 93971; 99284

== ENCOUNTER 2022-07-12 06:47 | Outpatient (CLI) | payer OTHER, MEDICAID ==
[2022-07-12] MEDS ORDERED: GADOBUTROL 15 MMOL/15 ML VIAL ONE (06:50)
[2022-07-12] MEDS ORDERED: GADOBUTROL 15 MMOL/15 ML VIAL IVP ONE (14:56)
--- NOTE | 2022-07-14 12:01 | MRI Report ---
PROCEDURE: FEMUR/THIGH W/WO - RT INDICATIONS: LIPOMA CONTRAST: GADAVIST 12.8ML TECHNIQUE: Noncontrast coronal T1 spin echo and STIR, sagittal T1 spin echo with fat saturation and STIR, axial T1 spin echo and T2 fast spin echo with fat saturation. After the administration of contrast, axial/ sagittal/coronal T1 spin echo with fat saturation through the right thigh. COMPARISON: Ultrasound of right thigh dated 06/10/2022. FINDINGS: Image quality: Excellent. Bones: There is prior internal fixation of left femoral shaft with significant susceptibility artifac ts. No marrow edema is seen in right femur. No fracture or dislocation. No suspicious intraosseous le alyse. No area of abnormal intraosseous enhancement is seen. Right hip joint osteoarthritic changes ar e noted with joint space narrowing and subchondral sclerosis. No evidence of avascular necrosis of fe moral head. The overlying cortex appears intact. No abnormal intraosseous enhancement. Soft tissues: Fiducial markers are seen in lateral aspect of right thigh and right knee level. Monica l fairly homogeneous fat signal is seen in right thigh soft tissue without discrete encapsulated mass is seen. No enhancing soft tissue masses are visualized. The scanned muscles demonstrate normal ove rall bulk and internal signal. IMPRESSION: 1. No enhancing soft tissue mass is seen in right thigh. No encapsulated lipoma is noted. Normal fat signal at patient's reported area of palpable lump which may indicate unencapsulated lipoma. Clinical correlation and follow-up is recommended. 2. No underlying muscle or tendon signal abnormality. No intramuscular mass or abnormal intramuscular enhancement. 3. No marrow signal abnormality. No fracture or dislocation. No abnormal intraosseous enhancement. Reviewed by: Tremaine Chávez MD on 07/14/2022 12:00 PM PST Approved by: Tremaine Chávez MD on 07/14/2022 12:00 PM PST Station ID: [id number]
--- NOTE | 2022-07-14 14:58 | MRI Report ---
PROCEDURE: LOWER LEG/TIB-FIB W/WO - RT INDICATIONS: LIPOMA CONTRAST: GADAVIST 12.8ML TECHNIQUE: Noncontrast coronal T1 spin echo and STIR, sagittal T1 spin echo with fat saturation and STIR, axial T1 spin echo and T2 fast spin echo with fat saturation. After the administration of contrast, axial/ sagittal/coronal T1 spin echo with fat saturation through the right lower leg. COMPARISON: None. FINDINGS: Image quality: Excellent. Bones: The visualized bone marrow demonstrates normal signal on all sequences. The overlying cortex appears intact. No abnormal intraosseous enhancement. Soft tissues: Fiducial marker is placed over posterior lateral aspect of mid calf level. Normal fat s ignal is seen deep to the site of the marker. No encapsulated soft tissue mass is seen. No enhancing soft tissue masses are visualized. The scanned muscles demonstrate normal overall bulk and internal signal. No abnormal intramuscular enhancement. IMPRESSION: 1. Normal fat signal is noted involving posterior lateral mid calf soft tissue without discrete encap sulated lipoma. Unencapsulated lipoma cannot be excluded. Clinical correlation and follow-up is recom mended. 2. No enhancing soft tissue mass or drainable fluid collection. No intramuscular mass or fluid collec tion. 3. No marrow signal abnormality. No fracture or dislocation. No abnormal intraosseous enhancement. Reviewed by: Tremaine Chávez MD on 07/14/2022 2:56 PM PST Approved by: Tremaine Chávez MD on 07/14/2022 2:56 PM PST Station ID: [id number]
== END 2022-07-12 06:48 | disposition home or self-care (01) ==
LOC: DI 06:47
PROVIDERS: ATTEND Registered Nurse
DX: D17.9 Benign lipomatous neoplasm, unspecified (principal)
CPT/HCPCS: 73720; A9585